=== PATIENT | male | born 1980 | race Caucasian/White ===

== ENCOUNTER 2023-07-17 16:48 | Emergency (ER) | payer OTHER ==
[~2023-07-17] VITALS: Ht 188 cm; Wt 100.9 kg
[~2023-07-17 16:48] MED LIST: CEPHALEXIN500 M1 PO; PERCOCET 325 MG1 TA2 PO; PREDNISONE20 MG PO
[2023-07-17 19:29] VITALS: BP 140/94; PULSE 77; TEMP 98
== END 2023-07-17 19:29 | disposition home or self-care (01) ==
LOC: COL.ER 16:48
DX: S51.811A Laceration without foreign body of right forearm, initial encounter (principal); Z23 Encounter for immunization; W25.XXXA Contact with sharp glass, initial encounter